=== PATIENT | male | born 1960 | race Two or more races ===

== ENCOUNTER 2019-08-12 15:28 | Inpatient (IN) | payer OTHER ==
[2019-08-12 17:23] VITALS: BMI 25.8
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
[2019-08-12] MEDS ORDERED: METHOCARBAMOL 500 MG TABLET PO PRN (18:09)
[2019-08-12] MEDS ORDERED: MENTHOL/PHENOL 1 EACH UD MM PRN (18:09)
[2019-08-12] MEDS ORDERED: hydrOXYzine PAMOATE 25 MG CAPSULE (FP) PO PRN (18:09)
[2019-08-12] MEDS ORDERED: MAG HYDROX/AL HYDROX/SIMETH 30 ML UNIT-DOSE CUP PO PRN (18:09)
[2019-08-12] MEDS ORDERED: MAGNESIUM CITRATE 300 ML BOTTLE PO PRN (18:09)
[2019-08-12] MEDS ORDERED: BISMUTH SUBSALICYLATE 524 MG/30 ML UD PO PRN (18:09)
[2019-08-12] MEDS ORDERED: IBUPROFEN 400 MG TABLET (FP) PO PRN (18:09)
[2019-08-12] MEDS ORDERED: ACETAMINOPHEN 325 MG TABLET (FP) PO PRN ×2 (18:09)
[2019-08-12] MEDS ORDERED: MAGNESIUM HYDROX 2400MG/30ML ORAL SUSPENSION 30 ML CUP PO PRN (18:09)
[2019-08-12] MEDS ORDERED: chlordiazePOXIDE HCL 25 MG CAPSULE PO PRN (18:09)
[2019-08-12] MEDS ORDERED: MELATONIN 5 MG TABLETS PO PRN (22:00)
[2019-08-12] MEDS: BUPRENORPHINE/NALOXONE 8 MG/2 MG FILM PACKET SL SCH (22:11)
[2019-08-12] MEDS: chlordiazePOXIDE HCL 25 MG CAPSULE PO SCH (22:12)
[2019-08-12] MEDS: THIAMINE HCL 100 MG TABLET (FP) PO SCH (22:13)
[2019-08-13] MEDS: chlordiazePOXIDE HCL 25 MG CAPSULE PO SCH ×4 (05:50→22:07)
--- NOTE | 2019-08-13 09:01 | EKG ---
Test Reason : Blood Pressure : / mmHG Vent. Rate : 092 BPM Atrial Rate : 092 BPM P-R Int : 126 ms QRS Dur : 082 ms QT Int : 378 ms P-R-T Axes : 073 038 050 degrees QTc Int : 467 ms NORMAL SINUS RHYTHM POSSIBLE LEFT ATRIAL ENLARGEMENT BORDERLINE ECG NO PREVIOUS ECGS AVAILABLE Confirmed by DANNI ALVAREZ MD ([id number]) on 08/13/2019 9:01:08 AM Referred By: Confirmed By:DANNI ALVAREZ MD
[2019-08-13 09:50] LABS: HEMATOCRIT 40.9 % (35.4-49); HEMOGLOBIN 13.5 GM/dL (11.7-16.9); MCH 31.7 pg (25.7-33.7); MEAN PLT VOLUME 7.9 fl (7.5-11.1); PLATELET COUNT 428 K/MM3 (134-434); RBC 4.26 M/mm3 (4.00-5.60); RDW 14.3 % (11.9-15.9); WHITE BLOOD COUNT 8.1 K/mm3 (4.0-10.0)
[2019-08-13 10:04] LABS: ALBUMIN 3.3 g/dl (3.4-5.0); BILIRUBIN,TOTAL 0.6 mg/dL (0.2-1); BLOOD UREA NITROGEN 27.6 mg/dL (7-18); CREATININE 1.2 mg/dL (0.55-1.3); POTASSIUM 3.8 mmol/L (3.5-5.1); TOT PROT 6.9 g/dl (6.4-8.2)
[2019-08-13] MEDS: NICOTINE 14 MG/24 HOURS TOPICAL PATCH TD SCH (10:13)
[2019-08-13] MEDS: PRENATAL VITAMINS W/ FOLIC ACID TABLET (FP) PO SCH (10:14)
[2019-08-13] MEDS: BUPRENORPHINE/NALOXONE 8 MG/2 MG FILM PACKET SL SCH ×2 (10:14→22:07)
[2019-08-13] MEDS: LOSARTAN POTASSIUM 25 MG TABLET PO SCH (10:14)
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
--- NOTE | 2019-08-13 11:58 | PN ---
[facility] CIWA - CIWA Score Nausea/Vomitin-No Nausea/No Vomiting Muscle Tremors: 3 Anxiety: 2 Agitation: 3 Paroxysmal Sweats: 2 Orientation: 0-Oriented Tacttile Disturbances: 0-None Auditory Disturbances: 0-None Visual Disturbances: 0-None Headache: 0-None Present CIWA-Ar Total Score: 10 S COWS - Scale Resting Pulse: 0= [place] 80 or Below Sweatin= Chills/Flushing Restless Observation: 1= Difficult to Sit Still Pupil Size: 0= Normal to Room Light Bone or Joint Aches: 1= Mild Discomfort Runny Nose/ Eye Tearin= None GI Upset > 30mins: 0= None Tremor Observation of Outstretched Hands: 1= Tremor [place], Not Seen Yawning Observation: 0= None Anxiety or Irritability: 2=Irritable/Anxious Goose Flesh Skin: 0=Smooth Skin COWS Score: 6 S Progress Note (SOAP) Subjective: sweats restless body aches interrupted sleep rash to arm where the nurse placed ppd Objective: 08/13/19 12:07 Vital Signs Temperature 98.1 F 08/13/19 09:34 Pulse Rate 70 08/13/19 09:34 Respiratory Rate 16 08/13/19 09:34 Blood Pressure 127/82 08/13/19 09:34 O2 Sat by Pulse Oximetry (%) Laboratory Tests 08/13/19 08/13/19 08/13/19 07:15 07:15 07:15 WBC 8.1 RBC 4.26 Hgb 13.5 Hct 40.9 MCV 96.0 MCH 31.7 MCHC 33.0 RDW 14.3 Plt Count 428 MPV 7.9 Sodium 137 Potassium 3.8 Chloride 102 Carbon Dioxide 27 Anion Gap 8 BUN 27.6 H Creatinine 1.2 Est GFR (CKD-EPI)AfAm 76.79 Est GFR (CKD-EPI)NonAf 66.26 Random Glucose 125 H Calcium 9.0 Total Bilirubin 0.6 AST 25 ALT 27 Alkaline Phosphatase 94 Total Protein 6.9 Albumin 3.3 L RPR Titer Nonreactive labs noted aaox3 ambulating no acute distress Assessment: 08/13/19 12:08 withdrawal sx rash to right arm noted Plan: continue detox hytone cream ordered chest xray ordered for a possible +ppd
[2019-08-13] MEDS: HYDROCORTISONE 1% TOPICAL CREAM 30 GM TUBE TP SCH ×2 (12:29→22:08)
[2019-08-13] MEDS: traZODone HCL 100 MG TABLET (FP) PO SCH (22:07)
[2019-08-13] MEDS: THIAMINE HCL 100 MG TABLET (FP) PO SCH (22:08)
[2019-08-14] MEDS: chlordiazePOXIDE HCL 25 MG CAPSULE PO SCH ×4 (05:47→22:20)
[2019-08-14] MEDS: BUPRENORPHINE/NALOXONE 8 MG/2 MG FILM PACKET SL SCH ×2 (10:21→22:20)
[2019-08-14] MEDS: NICOTINE 14 MG/24 HOURS TOPICAL PATCH TD SCH (10:21)
[2019-08-14] MEDS: PRENATAL VITAMINS W/ FOLIC ACID TABLET (FP) PO SCH (10:21)
[2019-08-14] MEDS: LOSARTAN POTASSIUM 25 MG TABLET PO SCH (10:21)
[2019-08-14] MEDS: HYDROCORTISONE 1% TOPICAL CREAM 30 GM TUBE TP SCH ×2 (10:21→22:21)
--- NOTE | 2019-08-14 15:29 | PN ---
[facility] CIWA - CIWA Score Nausea/Vomitin-No Nausea/No Vomiting Muscle Tremors: 2 Anxiety: 2 Agitation: 2 Paroxysmal Sweats: 2 Orientation: 0-Oriented Tacttile Disturbances: 0-None Auditory Disturbances: 0-None Visual Disturbances: 0-None Headache: 0-None Present CIWA-Ar Total Score: 8 BHS COWS - Scale Resting Pulse: 0= [place] 80 or Below Sweatin= Chills/Flushing Restless Observation: 0= Sits Still Pupil Size: 0= Normal to Room Light Bone or Joint Aches: 1= Mild Discomfort Runny Nose/ Eye Tearin= Runny Nose/Eyes GI Upset > 30mins: 1= Stomach Cramp Tremor Observation of Outstretched Hands: 2= Slight Tremor Visible Yawning Observation: 0= None Anxiety or Irritability: 1=Feels Anxious/Irritable Goose Flesh Skin: 0=Smooth Skin COWS Score: 8 BHS Progress Note (SOAP) Subjective: Chills, interrupted sleep Objective: 08/14/19 15:26 Last Vital Signs Temp Pulse Resp BP Pulse Ox 97.9 F 77 18 107/67 08/14/19 09:32 08/14/19 09:32 08/14/19 09:32 08/14/19 09:32 Laboratory Tests 08/13/19 08/13/19 08/13/19 07:15 07:15 07:15 WBC 8.1 RBC 4.26 Hgb 13.5 Hct 40.9 MCV 96.0 MCH 31.7 MCHC 33.0 RDW 14.3 Plt Count 428 MPV 7.9 Sodium 137 Potassium 3.8 Chloride 102 Carbon Dioxide 27 Anion Gap 8 BUN 27.6 H Creatinine 1.2 Est GFR (CKD-EPI)AfAm 76.79 Est GFR (CKD-EPI)NonAf 66.26 Random Glucose 125 H Calcium 9.0 Total Bilirubin 0.6 AST 25 ALT 27 Alkaline Phosphatase 94 Total Protein 6.9 Albumin 3.3 L RPR Titer Nonreactive Labs reviewed: serum glucose 125mg/dl (high), bun 27.6 (high) Assessment: 08/14/19 15:27 Withdrawal sxs Noted with azotemia, hyperglycemia and mild hypoalbuminemia Plan: Continue detox Azotemia: encouraged PO water hydration, repeat bun level Hyperglycemia: denies DM, could be r/t withdrawal, repeat fasting glucose, send A1c Hypoalbuminemia, mild: encouraged diet
[2019-08-14] MEDS: traZODone HCL 100 MG TABLET (FP) PO SCH (22:20)
[2019-08-14] MEDS: THIAMINE HCL 100 MG TABLET (FP) PO SCH (22:21)
[2019-08-15] MEDS ORDERED: chlordiazePOXIDE HCL 10 MG CAPSULE PO PRN
[2019-08-15] MEDS: chlordiazePOXIDE HCL 10 MG CAPSULE PO SCH ×4 (05:35→22:01)
[2019-08-15 10:02] LABS: BLOOD UREA NITROGEN 22.4 mg/dL (7-18)
[2019-08-15] MEDS: HYDROCORTISONE 1% TOPICAL CREAM 30 GM TUBE TP SCH ×2 (10:03→22:02)
[2019-08-15] MEDS: BUPRENORPHINE/NALOXONE 8 MG/2 MG FILM PACKET SL SCH ×2 (10:03→22:02)
[2019-08-15] MEDS: LOSARTAN POTASSIUM 25 MG TABLET PO SCH (10:03)
[2019-08-15] MEDS: NICOTINE 14 MG/24 HOURS TOPICAL PATCH TD SCH (10:03)
[2019-08-15] MEDS: PRENATAL VITAMINS W/ FOLIC ACID TABLET (FP) PO SCH (10:03)
--- NOTE | 2019-08-15 11:05 | PN ---
[facility] CIWA - CIWA Score Nausea/Vomitin-No Nausea/No Vomiting Muscle Tremors: 2 Anxiety: 1-Mildly Anxious Agitation: 1-Slight > Activity Paroxysmal Sweats: No Perspiration Orientation: 0-Oriented Tacttile Disturbances: 0-None Auditory Disturbances: 0-None Visual Disturbances: 0-None Headache: 0-None Present CIWA-Ar Total Score: 4 BHS COWS - Scale Resting Pulse: 1= [place] 81-100 Sweatin= Chills/Flushing Restless Observation: 0= Sits Still Pupil Size: 0= Normal to Room Light Bone or Joint Aches: 1= Mild Discomfort Runny Nose/ Eye Tearin= None GI Upset > 30mins: 0= None Tremor Observation of Outstretched Hands: 1= Tremor [place], Not Seen Yawning Observation: 1= 1-2x During Session Anxiety or Irritability: 1=Feels Anxious/Irritable Goose Flesh Skin: 0=Smooth Skin COWS Score: 6 [facility] Progress Note (SOAP) Subjective: dry/itchy feet sweats feeling better Objective: 08/15/19 11:04 Vital Signs Temperature 97.7 F 08/15/19 05:00 Pulse Rate 86 08/15/19 05:00 Respiratory Rate 20 08/15/19 05:00 Blood Pressure 121/79 08/15/19 05:00 O2 Sat by Pulse Oximetry (%) aaox3 ambulating no acute distress Assessment: 08/15/19 11:05 mild withdrawals Plan: continue detox increase fluids tinactin cream
[2019-08-15] MEDS: TOLNAFTATE 1% CREAM 15 GM TUBE TP SCH ×2 (15:19→22:02)
[2019-08-15] MEDS: THIAMINE HCL 100 MG TABLET (FP) PO SCH (22:01)
[2019-08-15] MEDS: traZODone HCL 100 MG TABLET (FP) PO SCH (22:02)
[2019-08-16] MEDS: chlordiazePOXIDE HCL 10 MG CAPSULE PO SCH ×2 (06:51→17:43)
[2019-08-16] MEDS: NICOTINE POLACRILEX 2 MG GUM BUC PRN ×2 (07:04→10:58)
[2019-08-16] MEDS: PRENATAL VITAMINS W/ FOLIC ACID TABLET (FP) PO SCH (10:57)
[2019-08-16] MEDS: LOSARTAN POTASSIUM 25 MG TABLET PO SCH (10:58)
[2019-08-16] MEDS: NICOTINE 14 MG/24 HOURS TOPICAL PATCH TD SCH (10:58)
[2019-08-16] MEDS: TOLNAFTATE 1% CREAM 15 GM TUBE TP SCH ×2 (10:58→22:09)
[2019-08-16] MEDS: BUPRENORPHINE/NALOXONE 8 MG/2 MG FILM PACKET SL SCH ×2 (10:58→22:09)
[2019-08-16] MEDS: HYDROCORTISONE 1% TOPICAL CREAM 30 GM TUBE TP SCH ×2 (10:58→22:09)
--- NOTE | 2019-08-16 11:12 | PN ---
[facility] CIWA - CIWA Score Nausea/Vomitin-No Nausea/No Vomiting Muscle Tremors: 1-None Visible, but [place] Anxiety: 1-Mildly Anxious Agitation: 1-Slight > Activity Paroxysmal Sweats: No Perspiration Orientation: 0-Oriented Tacttile Disturbances: 0-None Auditory Disturbances: 0-None Visual Disturbances: 0-None Headache: 0-None Present CIWA-Ar Total Score: 3 BHS COWS - Scale Resting Pulse: 1= [place] 81-100 Sweatin= No chills or Flushing Restless Observation: 1= Difficult to Sit Still Pupil Size: 0= Normal to Room Light Bone or Joint Aches: 1= Mild Discomfort Runny Nose/ Eye Tearin= None GI Upset > 30mins: 0= None Tremor Observation of Outstretched Hands: 1= Tremor [place], Not Seen Yawning Observation: 0= None Anxiety or Irritability: 0= None Goose Flesh Skin: 0=Smooth Skin COWS Score: 4 S Progress Note (SOAP) Subjective: restless Objective: 08/16/19 11:10 Vital Signs Temperature 98.4 F 08/16/19 05:00 Pulse Rate 85 08/16/19 05:00 Respiratory Rate 20 08/16/19 05:00 Blood Pressure 128/83 08/16/19 05:00 O2 Sat by Pulse Oximetry (%) aaox3 ambulating no acute distress Assessment: 08/16/19 11:10 mild withdrawals chest x-ray performed; results show lungs CTA. pt is not + ppd. Plan: continue detox d/c in am copy of chest x-ray provided to pt; placed in chart
[2019-08-16] MEDS: THIAMINE HCL 100 MG TABLET (FP) PO SCH (22:09)
[2019-08-16] MEDS: traZODone HCL 100 MG TABLET (FP) PO SCH (22:09)
[2019-08-17] MEDS: NICOTINE POLACRILEX 2 MG GUM BUC PRN ×2 (01:00→07:29)
[2019-08-17] MEDS ORDERED: chlordiazePOXIDE HCL 10 MG CAPSULE PO ONE (05:00)
--- NOTE | 2019-08-17 08:58 | DS ---
[facility] Detox Discharge Summary Admission Date: 08/12/19 Discharge Date: 08/17/19 - History Present History: Alcohol Dependence, Sedative Dependence - Physical Exam Results Vital Signs: Vital Signs Temperature 98.1 F 08/16/19 21:48 Pulse Rate 84 08/16/19 21:48 Respiratory Rate 18 08/17/19 03:30 Blood Pressure 128/73 08/16/19 21:48 O2 Sat by Pulse Oximetry (%) - Treatment Hospital Course: Detox Protocol Followed, Detoxed Safely, Responded well, Discharged Condition Good, Rehab Referral Accepted Patient has Accepted a Rehab Referral to: pt referre to inpatient rehab; - Medication Discharge Medications: Ambulatory Orders Buprenorphine/Naloxone [Suboxone 8Mg/2Mg Sl Film -] 1 each SL DAILY 08/12/19 Losartan Potassium 25 mg PO DAILY 08/12/19 traZODone HCL [Trazodone HCl] 100 mg PO HS 08/12/19 - Diagnosis (1) Alcohol dependence with withdrawal, uncomplicated Current Visit: Yes Status: Chronic (2) Nicotine dependence Current Visit: Yes Status: Chronic Qualifiers: Nicotine product type: cigarettes Substance use status: uncomplicated Qualified Code(s): F17.210 - Nicotine dependence, cigarettes, uncomplicated (3) Sedative, hypnotic or anxiolytic dependence with withdrawal, uncomplicated Current Visit: Yes Status: Chronic (4) Cocaine dependence, uncomplicated Current Visit: Yes Status: Chronic (5) Essential (primary) hypertension Current Visit: Yes Status: Chronic (6) Insomnia Current Visit: Yes Status: Chronic (7) Opioid dependence on agonist therapy Current Visit: Yes Status: Chronic (8) Substance induced mood disorder Current Visit: Yes Status: Chronic - AMA Did Patient Leave Against Medical Advice: No
[2019-08-17] MEDS: PRENATAL VITAMINS W/ FOLIC ACID TABLET (FP) PO SCH (09:57)
[2019-08-17] MEDS: HYDROCORTISONE 1% TOPICAL CREAM 30 GM TUBE TP SCH (09:57)
[2019-08-17] MEDS: TOLNAFTATE 1% CREAM 15 GM TUBE TP SCH (09:57)
[2019-08-17] MEDS: BUPRENORPHINE/NALOXONE 8 MG/2 MG FILM PACKET SL SCH (09:57)
[2019-08-17] MEDS: NICOTINE 14 MG/24 HOURS TOPICAL PATCH TD SCH (09:58)
[2019-08-17] MEDS: LOSARTAN POTASSIUM 25 MG TABLET PO SCH (10:00)
[2019-08-17 12:13] VITALS: BP 119/64; PULSE 76; TEMP 98.1
== END 2019-08-17 11:03 | disposition home or self-care (01) | DRG 773 ==
LOC: YASAS 15:28 → Y6N 18:28
PROVIDERS: ADMIT Allergy & Immunology; ATTEND Allergy & Immunology
PROC: HZ2ZZZZ Detoxification Services for Substance Abuse Treatment (ICD-10-PCS; principal; 2019-08-12)
DX: F10.230 Alcohol dependence with withdrawal, uncomplicated (principal); F11.20 Opioid dependence, uncomplicated; F13.230 Sedative, hypnotic or anxiolytic dependence with withdrawal, uncomplicated; F14.20 Cocaine dependence, uncomplicated; F16.20 Hallucinogen dependence, uncomplicated; F17.210 Nicotine dependence, cigarettes, uncomplicated; F19.24 Other psychoactive substance dependence with psychoactive substance-induced mood disorder; I10 Essential (primary) hypertension; G47.00 Insomnia, unspecified; R73.9 Hyperglycemia, unspecified; R79.89 Other specified abnormal findings of blood chemistry; E88.09 Other disorders of plasma-protein metabolism, not elsewhere classified
CPT/HCPCS: 36415; 71046-TC-FY; 80053; 82947; 83036; 84520; 85027; 86593; 93005; 93010